=== PATIENT | male | born 1950 | race Caucasian/White ===

== ENCOUNTER → 2017-09-10 | Outpatient (CLI) | payer MEDICARE, OTHER ==
[~2017-09-10] MED LIST: ACETYLCYSTE200 MG/M2 INH; ADRENALIN1 MG/1 M1 IV; ANTI-FUNGAL71 GM TP; ARTIFICIAL TEA3.5 G2 OP; ARTIFICIAL TEAR15 M1 OPHTHALMIC; ASPIR 8181 MG PER TUBE; ASPIR 8181 MG PO; B-12 DOTS500 MCG PER TUBE; BRILINTA90 MG PER TUBE; BRILINTA90 MG PO; CARVEDILOL3.125 MG PER TUBE; DEXTROSE 5% IV; DEXTROSE 50%-W500 ML IV; DIPHENHYDRAM50 MG/M2 IV PUSH; DIPRIVAN IV; DUONEB 2.5-0.5 M3 ML INH; FEVERALL650 MG RECTAL; FOLIC ACID1 MG PER TUBE; GLUCAGEN1 MG IM; GLUCOSE GEL38 GM PO; GLUTOSE GEL 1515 G1 PO; HEPARIN SO5000 UNIT/ SUBQ; HUMULIN R100 UNIT/M SUBQ; LEXAPRO 10 MG T10 M1 PER TUBE; LIPITOR40 MG PER TUBE; MAGNESIUM IV; MAGOX 400400 MG PO; MIDAZOLAM10 MG/2 M3 IJ; MIDODRINE HCL 55 M1 PER TUBE; MIDODRINE HCL 55 M1 PO; NEURO-K50 MG PER TUBE; NITROGLYCERIN0.4 MG SUBLING; NOVOLOG100 UNIT/1 SUBQ; ONDANSETRON HCL4 M2 PO; PEPCID20 MG PER TUBE; PERIDEX15 ML PO; POTASSIUM20 MEQ/100 IV; PROTONIX 440 MG/VIA2 IV PUSH; SEROQUEL 25 MG25 M1 PER TUBE; SODIUM PHO IV; SOLU-MEDRO40 MG/1 M2 IJ; TYLENOL325 MG PER TUBE; XANAX 0.5 MG0.5 MG PER TUBE; ZOFRAN 4 MG ORAL4 MG PO
[2017-09-10 13:36] LABS: CALCIUM 9.1 mg/dL (8.5-10.1); CREATININE 1.2 mg/dL (0.6-1.3); POTASSIUM 4.5 mmol/L (3.5-5.1)
== END ==
LOC: M.LAB 13:13
PROVIDERS: Nurse Practitioner
DX: I25.10 Atherosclerotic heart disease of native coronary artery without angina pectoris (principal); I25.5 Ischemic cardiomyopathy

== ENCOUNTER → 2017-09-24 | Outpatient (CLI) | payer MEDICARE, OTHER ==
[2017-09-24 10:17] LABS: ABSOLUTE BASOPHILS 0.1 thou/uL (0.0-0.2); ABSOLUTE EOSINOPHILS 0.3 thou/uL (0.0-0.7); ABSOLUTE LYMPHOCYTES 1.7 thou/uL (0.8-5.3); ABSOLUTE MONOCYTES 0.6 thou/uL (0.0-1.2); ABSOLUTE NEUTROPHILS 7.6 thou/uL (1.6-8.1); BASOPHILS 0.6 %; EOSINOPHILS 2.8 %; HEMATOCRIT 45.7 % (42.0-52.0); HEMOGLOBIN 15.7 gm/dL (14.0-18.0); LYMPHOCYTES 16.4 %; MCH 32.3 pg (26.0-34.0); MCHC 34.4 g/dL (28.0-37.0); MCV 93.9 fL (80.0-100.0); MONOCYTES 6.2 %; MPV 8.1 fl. (7.2-11.1); NUCLEATED RBCS 0 /100WBC; PLATELET COUNT* 189 thou/uL (150-400); RBC 4.86 mil/uL (4.50-6.00); RDW-CV 13.8 % (10.5-14.5); WBC 10.3 thou/uL (4.0-11.0)
[2017-09-24 10:29] LABS: ALBUMIN 4.3 g/dL (3.4-5.0); ALKALINE PHOSPHATASE 109 U/L (46-116); ANION GAP 6 mmol/L (7-16); BUN 24 mg/dL (7-18); CALCIUM 9.1 mg/dL (8.5-10.1); CHLORIDE 99 mmol/L (98-107); CHOLESTEROL 129 mg/dL (<200); CO2 29 mmol/L (21-32); CREATININE 1.2 mg/dL (0.6-1.3); GLUCOSE 144 mg/dL (70-99); HDL CHOLESTEROL 38 mg/dL (>40); LDL CHOLESTEROL 60 mg/dL (<100); POTASSIUM 5.5 mmol/L (3.5-5.1); SGOT 25 U/L (15-37); SGPT 52 U/L (30-65); SODIUM 134 mmol/L (136-145); TC:HDL 3.4 Ratio (Not establshd); TOTAL BILIRUBIN 0.9 mg/dL (<0.1-1.0); TOTAL PROTEIN 7.8 g/dL (6.4-8.2); TRIGLYCERIDE 159 mg/dL (<150); VLDL 32 mg/dL (<40)
[2017-09-24 10:30] LABS: SERUM ASSESSMENT Clear
[2017-09-25 05:14] LABS: GLYCOHEMOGLOBIN (HGB A1C) 6.5 % (4.8-5.6)
== END ==
LOC: M.LAB 09:49
PROVIDERS: Family Medicine
DX: I25.10 Atherosclerotic heart disease of native coronary artery without angina pectoris (principal); I10 Essential (primary) hypertension; F32.1 Major depressive disorder, single episode, moderate; R53.83 Other fatigue; K21.9 Gastro-esophageal reflux disease without esophagitis; R73.09 Other abnormal glucose; K71.2 Toxic liver disease with acute hepatitis

== ENCOUNTER → 2017-10-22 | Outpatient (CLI) | payer MEDICARE, OTHER ==
[2017-10-22 10:59] LABS: CALCIUM 9.3 mg/dL (8.5-10.1); CREATININE 1.1 mg/dL (0.6-1.3); POTASSIUM 4.5 mmol/L (3.5-5.1)
== END ==
LOC: M.LAB 10:22
PROVIDERS: Internal Medicine Cardiovascular Disease
DX: E87.5 Hyperkalemia (principal); I25.10 Atherosclerotic heart disease of native coronary artery without angina pectoris; I10 Essential (primary) hypertension; E78.2 Mixed hyperlipidemia

== ENCOUNTER → 2017-11-01 | Outpatient (CLI) | payer MEDICARE, OTHER ==
[2017-11-01 11:54] LABS: CALCIUM 8.6 mg/dL (8.5-10.1); POTASSIUM 4.5 mmol/L (3.5-5.1)
== END ==
LOC: M.LAB 10:26
PROVIDERS: Internal Medicine Cardiovascular Disease
DX: I25.5 Ischemic cardiomyopathy (principal); I10 Essential (primary) hypertension; I25.10 Atherosclerotic heart disease of native coronary artery without angina pectoris; E78.2 Mixed hyperlipidemia

== ENCOUNTER → 2018-03-25 | Outpatient (CLI) | payer MEDICARE, OTHER ==
[2018-03-25 12:04] LABS: ABSOLUTE BASOPHILS 0.1 thou/uL (0.0-0.2); ABSOLUTE EOSINOPHILS 0.2 thou/uL (0.0-0.7); ABSOLUTE LYMPHOCYTES 1.4 thou/uL (0.8-5.3); ABSOLUTE MONOCYTES 0.4 thou/uL (0.0-1.2); ABSOLUTE NEUTROPHILS 5.2 thou/uL (1.6-8.1); BASOPHILS 1.1 %; EOSINOPHILS 2.9 %; HEMATOCRIT 46.9 % (42.0-52.0); HEMOGLOBIN 15.7 gm/dL (14.0-18.0); LYMPHOCYTES 19.8 %; MCH 31.6 pg (26.0-34.0); MCHC 33.4 g/dL (28.0-37.0); MCV 94.5 fL (80.0-100.0); MONOCYTES 5.6 %; MPV 8.1 fl. (7.2-11.1); NUCLEATED RBCS 0 /100WBC; PLATELET COUNT* 188 thou/uL (150-400); POLYS 70.6 %; RBC 4.97 mil/uL (4.50-6.00); RDW-CV 14.6 % (10.5-14.5); WBC 7.3 thou/uL (4.0-11.0)
[2018-03-25 12:18] LABS: ALBUMIN 3.9 g/dL (3.4-5.0); ALKALINE PHOSPHATASE 93 U/L (46-116); ANION GAP 6 mmol/L (7-16); BUN 12 mg/dL (7-18); CALCIUM 8.8 mg/dL (8.5-10.1); CHLORIDE 106 mmol/L (98-107); CHOLESTEROL 128 mg/dL (<200); CO2 29 mmol/L (21-32); GLUCOSE 92 mg/dL (70-99); HDL CHOLESTEROL 43 mg/dL (>40); LDL CHOLESTEROL 54 mg/dL (<100); POTASSIUM 4.2 mmol/L (3.5-5.1); SGOT 15 U/L (15-37); SGPT 23 U/L (30-65); SODIUM 141 mmol/L (136-145); TOTAL BILIRUBIN 0.8 mg/dL (<0.1-1.0); TOTAL PROTEIN 7.5 g/dL (6.4-8.2); TRIGLYCERIDE 155 mg/dL (<150); VLDL 31 mg/dL (<40)
[2018-03-25 12:24] LABS: SERUM ASSESSMENT Clear
[2018-03-25 22:08] LABS: GLYCOHEMOGLOBIN (HGB A1C) 5.7 % (4.8-5.6)
== END ==
LOC: M.LAB 11:41
PROVIDERS: Family Medicine
DX: I10 Essential (primary) hypertension (principal); E11.65 Type 2 diabetes mellitus with hyperglycemia; R53.83 Other fatigue; Z87.891 Personal history of nicotine dependence

== ENCOUNTER 2018-05-21 10:03 | Emergency (ER) | payer MEDICARE, OTHER ==
[~2018-05-21] VITALS: Ht 172.7 cm; Wt 80.3 kg
[2018-05-21] MEDS ORDERED: NITROGLYCERIN0.4 MG SUBLING (10:11)
[2018-05-21] MEDS ORDERED: ZESTRIL5 MG PO (10:11)
[2018-05-21] MEDS ORDERED: METFORMIN HCL500 MG PO (10:11)
[2018-05-21] MEDS ORDERED: PLAVIX 75 MG TA75 M1 PO (10:11)
[2018-05-21 10:51] LABS: HEMATOCRIT 40.8 % (42.0-52.0); MCH 32.7 pg (26.0-34.0); MCHC 34.2 g/dL (28.0-37.0); MCV 95.4 fL (80.0-100.0); MPV 8.4 fl. (7.2-11.1); NUCLEATED RBCS 0 /100WBC; PLATELET COUNT* 116 thou/uL (150-400); RBC 4.28 mil/uL (4.50-6.00); RDW-CV 13.8 % (10.5-14.5); WBC 4.9 thou/uL (4.0-11.0)
[2018-05-21 11:03] LABS: ANION GAP 10 mmol/L (7-16); APTT 26.4 Seconds (25.0-31.3); BUN 16 mg/dL (7-18); CALCIUM 8.3 mg/dL (8.5-10.1); CHLORIDE 102 mmol/L (98-107); CO2 25 mmol/L (21-32); CREATININE 1.1 mg/dL (0.6-1.3); GLUCOSE 130 mg/dL (70-99); INR 1.1; POTASSIUM 3.9 mmol/L (3.5-5.1); PROTIME 11.2 Seconds (9.20-11.50); SODIUM 137 mmol/L (136-145)
[2018-05-21 11:11] LABS: ALBUMIN 3.7 g/dL (3.4-5.0); ALKALINE PHOSPHATASE 72 U/L (46-116); SGOT 18 U/L (15-37); SGPT 29 U/L (30-65); TOTAL BILIRUBIN 0.6 mg/dL (<0.1-1.0); TOTAL PROTEIN 6.9 g/dL (6.4-8.2); TROPONIN-I LEVEL <0.06 ng/mL (<0.06)
[2018-05-21 11:35] LABS: ABSOLUTE LYMPHOCYTES 0.2 thou/uL (0.8-5.3); ABSOLUTE MONOCYTES 0.1 thou/uL (0.0-1.2); ABSOLUTE NEUTROPHILS 4.5 thou/uL (1.6-8.1); PLATELET ESTIMATE ADEQUATE
[2018-05-21 12:29] LABS: INFLUENZA B ANTIGEN None Detected (None Detect)
[2018-05-21] MEDS ORDERED: VENTOLIN HFA 1818 GM INH (12:41)
[2018-05-21] MEDS ORDERED: OSELB75 PO (12:41)
[2018-05-21] MEDS ORDERED: MEDROLDOSEPACK PO (12:41)
[2018-05-21 13:05] VITALS: BP 101/65
--- NOTE | 2018-05-21 18:09 | EKG ---
[place] [address] ELECTROCARDIOGRAM REPORT Name: ATIYA DOE Room: [facility]#: [id number] Admission: 05/21/18 Attend Phys: Discharge: 05/21/18 Date of : 54 Report #: [id number] THIS REPORT FOR: //name// [facility] ED Test Date: 2018-05-21 Test Time: 10:48:05 Pat Name: ATIYA DOE Department: Room: Gender: M [employer]: : 1950 Requested By: Kirstin Delgado Order Number: [id number] MD: Juma Renae Measurements Intervals [place] Rate: 98 P: 63 DC: 175 QRS: -41 QRSD: 102 T: 65 QT: 319 QTc: 408 Interpretive Statements Sinus rhythm Probable left atrial enlargement Left anterior fascicular block Anteroseptal infarct, old, possible Compared to ECG 02/21/2017 14:45:17 Atrial premature complex(es) no longer present Myocardial infarct finding still present Electronically Signed On 05-21-2018 18:09:02 [employer] by Juma Renae [email or web address] <ELECTRONICALLY SIGNED> By: Juma Renae MD, FACC 05/21/18 1809 [id number] Juma Renae MD, FAC /EPI
== END 2018-05-21 13:05 | disposition home or self-care (01) ==
LOC: M.ERS 10:03
PROVIDERS: Nurse Practitioner Family
DX: J09.X2 Influenza due to identified novel influenza A virus with other respiratory manifestations (principal); F17.210 Nicotine dependence, cigarettes, uncomplicated

== ENCOUNTER → 2018-09-23 | Outpatient (CLI) | payer MEDICARE, OTHER ==
[~2018-09-23] MED LIST changes: +MEDROLDOSEPACK PO; +METFORMIN HCL500 MG PO; +OSELB75 PO; +PLAVIX 75 MG TA75 M1 PO; +VENTOLIN HFA 1818 GM INH; +ZESTRIL5 MG PO
[2018-09-23 10:18] LABS: CALCIUM 9.2 mg/dL (8.5-10.1); POTASSIUM 4.4 mmol/L (3.5-5.1)
[2018-09-24 02:10] LABS: GLYCOHEMOGLOBIN (HGB A1C) 5.6 % (4.8-5.6)
== END ==
LOC: M.LAB 09:51
PROVIDERS: Family Medicine
DX: I25.10 Atherosclerotic heart disease of native coronary artery without angina pectoris (principal); R73.09 Other abnormal glucose; R53.83 Other fatigue

== ENCOUNTER → 2019-07-14 | Outpatient (CLI) | payer MEDICARE, OTHER ==
[2019-07-14 10:14] LABS: ALBUMIN 3.9 g/dL (3.4-5.0); ALKALINE PHOSPHATASE 89 U/L (46-116); CHOLESTEROL 96 mg/dL (<200); DIRECT BILIRUBIN 0.2 mg/dL (<0.1-0.3); HDL CHOLESTEROL 40 mg/dL (>40); LDL CHOLESTEROL 42 mg/dL (<100); SGOT 15 U/L (15-37); SGPT 21 U/L (30-65); TC:HDL 2.4 Ratio (Not establshd); TOTAL BILIRUBIN 0.7 mg/dL (<0.1-1.0); TOTAL PROTEIN 6.6 g/dL (6.4-8.2); TRIGLYCERIDE 71 mg/dL (<150); VLDL 14 mg/dL (<40)
[2019-07-14 10:15] LABS: SERUM ASSESSMENT Clear
== END ==
LOC: M.LAB 09:28
PROVIDERS: Nurse Practitioner
DX: E78.5 Hyperlipidemia, unspecified (principal)

== ENCOUNTER 2021-05-01 13:27 | Emergency (ER) | payer MEDICARE ==
[~2021-05-01] VITALS: Ht 170.2 cm; Wt 79.4 kg
[2021-05-01] MEDS ORDERED: CEPHALEXIN500 MG PO (15:01)
[2021-05-01 15:28] VITALS: BP 146/95
== END 2021-05-01 15:28 | disposition home or self-care (01) ==
LOC: M.ERS 13:27
DX: S61.411A Laceration without foreign body of right hand, initial encounter (principal); S51.801A Unspecified open wound of right forearm, initial encounter; F17.210 Nicotine dependence, cigarettes, uncomplicated; Z91.02 Food additives allergy status; Z79.899 Other long term (current) drug therapy; X58.XXXA Exposure to other specified factors, initial encounter; Y93.89 Activity, other specified; Y99.8 Other external cause status; Y92.89 Other specified places as the place of occurrence of the external cause

== ENCOUNTER 2021-05-15 16:03 | Emergency (ER) | payer MEDICARE, OTHER ==
[~2021-05-15] VITALS: Ht 172.7 cm; Wt 79.8 kg
[~2021-05-15 16:03] MED LIST changes: +CEPHALEXIN500 MG PO
[2021-05-15 16:44] VITALS: BP 141/70
== END 2021-05-15 16:45 | disposition home or self-care (01) ==
LOC: M.ERS 16:03
DX: S51.812D Laceration without foreign body of left forearm, subsequent encounter (principal); F17.210 Nicotine dependence, cigarettes, uncomplicated; Z48.02 Encounter for removal of sutures; Z79.899 Other long term (current) drug therapy; Z91.02 Food additives allergy status; X58.XXXD Exposure to other specified factors, subsequent encounter